=== PATIENT | male | born 1955 | race Caucasian/White ===

== ENCOUNTER 2024-06-26 06:13 | Day surgery (SDC) | payer MEDICARE, BC, SELFPAY ==
[2024-06-26 06:43] VITALS: BP 110/69
[2024-06-26 06:53] VITALS: BMI 40.5
[2024-06-26 06:54] VITALS: BP 110/69
[2024-06-26 07:14] LABS: Hematocrit 40.8 % (39.0-52.0); Hemoglobin 14.4 g/dL (13.0-18.0); Mean Corp Hgb Conc. 35.3 g/dL (33.0-37.0); Mean Corpuscular Hgb 30.9 pg (27.0-31.0); Mean Corpuscular Volume 87.6 fL (80.0-94.0); Mean Platelet Volume 10.4 fL (7.4-10.4); Platelet Count 154 10^3/uL (130-400); Red Blood Cell Count 4.66 10^6/uL (4.70-6.10); Red Cell Dist. Width 14.1 % (11.5-14.5); White Blood Cell Count 5.6 10^3/uL (4.8-10.8)
[2024-06-26 09:13] VITALS: BP 116/79
[2024-06-26 09:28] VITALS: BP 107/65
--- NOTE | 2024-06-26 09:35 | ITS.CL.CATH ---
Sales Operations Consultant - Catheterization
Cardiac Catheterization
Procedure Report:
RIGHT HEART CATHETERIZATION
Date of Procedure: June 26, 2024
Referring: Dr. Shanta Redman
INDICATION: Severe pulmonary hypertension
Hemodynamics (mmHg):
BP cuff: 114/65, 85
RA (m) : 18
RV (s/d,m) : 98/13, 22
PA (s/d, m) : 94/45, 64
PCWP (m) : 24
Cardiac Output : 6.1 L/min and Cardiac Index : 2.5 L/min/m-2
Systemic vascular resistance: 11 Wood units or 880 [id number])
Pulmonary vascular resistance: 6.6 Wood units or 524 [id number](-5)
RADIATION SUMMARY: Fluoro Time (min): 2.8, Dose (mGy): 69, DAP (Gy.cm2) : 10.5
CONCLUSION:
1. Severe pulmonary hypertension with mean PA pressures of 64 mmHg and PVR of 6.6 Wood units. Would suspect there is a component of postcapillary pulmonary hypertension with pulmonary capillary wedge pressure of 24 mmHg. Findings most consistent
with WHO 1 and WHO 5 Classifications
Copy to: Dr. Shanta Redman
[2024-06-26 09:43] VITALS: BP 117/69
[2024-06-26 09:54] VITALS: BP 113/68
[2024-06-26 10:53] LABS: NT-proBNP 484 pg/ml
== END 2024-06-26 10:05 | disposition home or self-care (01) ==
LOC: CATH 06:13
PROVIDERS: Nurse Practitioner; ATTENDING PHYSICIAN Internal Medicine Interventional Cardiology; FAMILY PHYSICIAN Family Medicine; OTHER PHYSICIAN Internal Medicine Cardiovascular Disease
DX: I27.20 Pulmonary hypertension, unspecified (principal); Z79.899 Other long term (current) drug therapy
CPT/HCPCS: 83880; 85027; 93451; C1769; C1894

== ENCOUNTER → 2025-02-16 12:22 | Outpatient (REF) | payer MEDICARE, BC, SELFPAY | LOC: RCS 12:22 | PROVIDERS: ATTENDING PHYSICIAN Internal Medicine Cardiovascular Disease; FAMILY PHYSICIAN Family Medicine | DX: I51.9 Heart disease, unspecified (principal); I27.21 Secondary pulmonary arterial hypertension; I50.32 Chronic diastolic (congestive) heart failure | CPT/HCPCS: 93306 ==